=== PATIENT | male | born 1960 | race Caucasian/White ===

== ENCOUNTER 2018-03-06 23:34 | Inpatient (IN) | payer OTHER ==
[~2018-03-06] VITALS: Ht 177.8 cm; Wt 90.0 kg
--- NOTE | ~2018-03-06 | EKG ---
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
--- NOTE | ~2018-03-06 | EKG ---
[place], [place] ELECTROCARDIOGRAM REPORT NAME: MARCOS BOYLE UNIT #: [id number] ROOM: [facility] DOCTOR: GUSTAVO DRAFT REPORT BIRTHDATE: [birth year] [facility] Test Date: 2018-03-08 Test Time: 10:54:26 Pat Name: MARCOS BOYLE Department: Room: [place] [id number] Gender: M Cattle Farmer: : 1960 Requested By: VINCENT VILLARREAL Order Number: [id number] Reading MD: Jorge Murguia MD Measurements Intervals [place] Rate: 53 P: -7 MI: 157 QRS: 70 QRSD: 95 T: 82 QT: 480 QTc: 451 Interpretive Statements Sinus rhythm Electronically Signed On 03-08-2018 9:48:02 PDT by Jorge Murguia MD CM:EKGRPT:ELECTROCARDIOGRAM REPORT 1054 [id number] VINCENT YEE DRAFT REPORT VINCENT VILLARREAL DO
[2018-03-06 23:43] VITALS: BP 182/98
[2018-03-06] MEDS ORDERED: CLONIDINE0.2 MG PO (23:45)
[2018-03-06] MEDS ORDERED: MINIPRESS5 MG PO (23:46)
[2018-03-06] MEDS ORDERED: REMERON15 M2 PO (23:46)
[2018-03-06] MEDS ORDERED: PROZAC20 MG PO (23:47)
[2018-03-06 23:57] LABS: HEMATOCRIT 39.4 % (42.0-52.0); HEMOGLOBIN 12.9 g/dl (14.0-18.0); MEAN CELL VOLUME 90.2 fl (80.0-94.0); MEAN CORPUSCULAR HGB 29.5 pg (27.0-31.0); MEAN CORPUSCULAR HGB CONC 32.7 g/dl (33.0-37.0); MEAN PLATELET VOLUME 8.9 fl (9.6-12.3); PLATELET COUNT AUTOMATED 260 10*3/uL (130-400); RED BLOOD COUNT 4.37 10*6/uL (4.50-5.90); RED CELL DISTRI WIDTH 14.1 % (0-14.5); WHITE BLOOD COUNT 10.2 10*3/uL (4.8-10.8)
[2018-03-07] VITALS (7 sets, daily range): BP systolic 125–167; BP diastolic 77–89
[2018-03-07 00:16] LABS: PLATELET SUFFICIENCY NORMAL (NORMAL); TOTAL CELLS COUNTED 100 #CELLS
[2018-03-07 00:23] LABS: ALBUMIN 4.4 gm/dl (3.1-4.5); ALKALINE PHOSPHATASE 91 U/L (45-117); BUN 7 mg/dl (7-24); CHLORIDE 99 mmol/L (98-107); CREATININE 1.12 mg/dL (0.70-1.30); LIPASE 120 U/L (73-393); POTASSIUM 3.6 mmol/L (3.5-5.1); SGOT/AST 24 IU/L (3-35); SGPT/ALT 26 U/L (12-78); SODIUM 136 mmol/L (136-145); TROPONIN I < 0.015 ng/ml (<0.045)
[2018-03-07 00:34] LABS: BILIRUBIN NEGATIVE (NEGATIVE); BLOOD NEGATIVE (NEGATIVE); CLARITY CLEAR (CLEAR); COLOR YELLOW (YELLOW); GLUCOSE NEGATIVE (NEGATIVE); KETONE 2+ (NEGATIVE); LEUKO ESTERASE NEGATIVE (NEGATIVE); NITRITE NEGATIVE (NEGATIVE); UROBILINOGEN 0.2 E.U./dl (0.2-1.0)
[2018-03-07 00:46] LABS: URINE AMPHETAMINES < 1000 (1000ng/ml); URINE BARBITURATES < 200 (200ng/ml); URINE BENZODIAZEPINES < 200 (200ng/ml); URINE CANNABINOIDS (THC) < 50 (50ng/ml); URINE COCAINE < 300 (300ng/ml); URINE METHADONE < 300 (300ng/ml); URINE OPIATES < 300 (300ng/ml)
[2018-03-07 00:48] LABS: URINE PHENCYCLIDINE < 25 (25ng/ml)
[2018-03-07 00:49] LABS: EPITHELIAL CELLS 0-5; WBC 0-2 wbc/hpf (0-5)
[2018-03-07 05:22] LABS: PHOSPHOROUS 2.5 mg/dL (2.5-4.9)
[2018-03-07 05:27] LABS: THYROID STIM HORMONE (HS) 0.375 uIU/ml (0.358-4.75)
[2018-03-07 09:11] LABS: VITAMIN D, 25-HYDROXY 36.8 ng/mL (30-100)
[2018-03-08] VITALS: BP 132/82
[2018-03-08 04:00] VITALS: BP 155/77
[2018-03-08 08:00] VITALS: BP 151/80
[2018-03-08 08:05] LABS: BASO % 0.3 % (0.0-1.0); EOS # 0.1 10*3/uL (0.0-0.4); HEMATOCRIT 39.3 % (42.0-52.0); HEMOGLOBIN 12.3 g/dl (14.0-18.0); LYMPH # 1.5 10*3/uL (1.3-4.4); LYMPH % 25.2 % (27.0-41.0); MEAN CORPUSCULAR HGB 29.4 pg (27.0-31.0); MEAN CORPUSCULAR HGB CONC 31.3 g/dl (33.0-37.0); MEAN PLATELET VOLUME 8.9 fl (9.6-12.3); MONO # 0.7 10*3/uL (0.1-1.0); MONO % 10.6 % (3.0-9.0); NEUT # 3.8 10*3/uL (2.3-7.9); NEUT % 61.7 % (47.0-73.0); PLATELET COUNT AUTOMATED 193 10*3/uL (130-400); RED BLOOD COUNT 4.19 10*6/uL (4.50-5.90); RED CELL DISTRI WIDTH 14.1 % (0-14.5); WHITE BLOOD COUNT 6.1 10*3/uL (4.8-10.8)
[2018-03-08 08:08] LABS: MEAN CELL VOLUME 93.8 fl (80.0-94.0)
[2018-03-08 08:20] LABS: ALBUMIN 3.4 gm/dl (3.1-4.5); ALKALINE PHOSPHATASE 78 U/L (45-117); BUN 8 mg/dl (7-24); CHLORIDE 108 mmol/L (98-107); CREATININE 0.83 mg/dL (0.70-1.30); POTASSIUM 3.9 mmol/L (3.5-5.1); SGOT/AST 21 IU/L (3-35); SGPT/ALT 23 U/L (12-78); SODIUM 143 mmol/L (136-145); TOTAL PROTEIN 6.4 gm/dL (6.4-8.2)
[2018-03-08 12:00] VITALS: BP 111/68
[2018-03-08 16:00] VITALS: BP 142/95
[2018-03-08 20:00] VITALS: BP 118/81
[2018-03-09] VITALS: BP 118/81
[2018-03-09 04:00] VITALS: BP 117/67
[2018-03-09 05:55] LABS: BUN 10 mg/dl (7-24); CHLORIDE 106 mmol/L (98-107); CREATININE 0.89 mg/dL (0.70-1.30); POTASSIUM 3.5 mmol/L (3.5-5.1); SODIUM 142 mmol/L (136-145)
[2018-03-09 08:00] VITALS: BP 130/90
[2018-03-09 12:00] VITALS: BP 110/80
[2018-03-09 16:00] VITALS: BP 158/94
== END 2018-03-09 16:25 | disposition left against medical advice (07) | DRG 305 ==
LOC: ED 23:34 → ICCU 03-07 01:43
PROVIDERS: Emergency Medicine; Student in an Organized Health Care Education/Training Program
DX: I16.0 Hypertensive urgency (principal); E87.2 Acidosis; R65.10 Systemic inflammatory response syndrome (SIRS) of non-infectious origin without acute organ dysfunction; F10.239 Alcohol dependence with withdrawal, unspecified; Z71.6 Tobacco abuse counseling; Z72.0 Tobacco use; R00.0 Tachycardia, unspecified; R06.82 Tachypnea, not elsewhere classified; D64.9 Anemia, unspecified; F43.10 Post-traumatic stress disorder, unspecified; I10 Essential (primary) hypertension; R33.9 Retention of urine, unspecified; R11.0 Nausea; R00.1 Bradycardia, unspecified; F41.9 Anxiety disorder, unspecified; Z53.21 Procedure and treatment not carried out due to patient leaving prior to being seen by health care provider; Z79.899 Other long term (current) drug therapy; Z90.49 Acquired absence of other specified parts of digestive tract; Z90.89 Acquired absence of other organs; Z82.49 Family history of ischemic heart disease and other diseases of the circulatory system; Z82.3 Family history of stroke; Z82.0 Family history of epilepsy and other diseases of the nervous system